=== PATIENT | female | born 1945 | race Hispanic/Latino ===

== ENCOUNTER → 2018-09-08 | Day surgery (SDC) | payer MEDICARE, OTHER ==
[2018-09-07 10:04] LABS: BASOPHILS # (AUTO) 0.1 (0.0-0.1); BASOPHILS % 0.7 % (0.0-1.0); EOSINOPHILS # (AUTO) 0.2 (0.0-0.4); EOSINOPHILS % 2.8 % (0.0-6.0); HEMATOCRIT 41.5 % (34.2-44.1); HEMOGLOBIN 14.1 g/dL (12.0-16.0); LYMPHOCYTES # (AUTO) 2.4 (1.0-3.2); MEAN CORPUSCULAR HEMOGLOBIN 30.4 pg (28-32); MEAN CORPUSCULAR VOLUME 89.4 fL (81-99); MONOCYTES # (AUTO) 0.9 (0.2-0.8); MONOCYTES % 11.9 % (4.4-11.3); NEUTROPHILS % 51.8 % (38.7-80.0); PLATELET COUNT 281 x10e3/uL (140-360); RED BLOOD COUNT 4.64 x10e6/uL (3.6-5.1); RED CELL DISTRIBUTION WIDTH 14.7 % (11.7-14.4)
[~2018-09-08] MED LIST: AMLODIPINE BESY10 MG PO; CALCIUM PO; EPHEDRINE SULFATE INJ 50 MG/10 ML SYR ONE; FENTANYL CITRATE/PF 100MCG/2 ML INJ ONE; FISH OIL 1,0001 EAC2 PO; GLUCAGON FOR INJ 1 MG VIAL ONE; HYOSCYAMINE SULFATE 0.5 MG/ML INJ IV ONE; LEVOTHYROXINE112 MCG PO; METOPROLOL SUCC50 MG PO; MIDAZOLAM HCL 2 MG/2 ML VIAL ONE; PANTOPRAZOLE SO40 MG PO; PROPOFOL IV EMULSION 10 MG/ML 50 ML VIAL ONE; SIMVASTATIN20 MG PO; VASOTEC10 MG PO
[2018-09-08 13:40] VITALS: BP 122/57
--- NOTE | 2018-09-08 15:03 | Operative Report ---
DATE OF PROCEDURE: 09/08/2018 SURGEON: Kuldeep Power MD PROCEDURE: EGD with biopsies and colonoscopy. INDICATIONS FOR EGD: History of heartburn, dysphagia. INDICATIONS FOR COLONOSCOPY: Surveillance colonoscopy, personal history of colon polyps, history of bright red blood per rectum. MEDICATIONS: The patient was done under MAC, please see anesthesiologist's note. PROCEDURE IN DETAIL: With the patient in left lateral decubitus position flexible fiberoptic Olympus gastroscope was introduced into the esophagus under direct visualization without any difficulty. A minute nodule was noted in cervical esophagus that was biopsied. Mucosa overlying the distal esophagus revealed some patchy erythema. There was some mild stricture noted at the GE junction that was dilated to size 52-[place]. The scope was then advanced with ease into her stomach and mucosa overlying the antrum revealed some diffuse erythema and moderate edema and biopsies were obtained and sent to stain for H pylori. There was some patchy atrophic changes noted in the body of the stomach and biopsies were obtained to rule out atrophic gastritis. Several minute polyps were noted in the body of the stomach and somewhat partially excised with cold biopsy forceps. An approximately 3 mm submucosal nodule was noted in the upper body, anterior wall and that was biopsied. The pylorus was of normal contour and shape, it was intubated with ease and the scope was advanced all the way to the second portion of the duodenum. The scope was then withdrawn slowly, mucosa overlying the proximal second portion and duodenal bulb appeared to be within normal limits. The scope was then withdrawn back into the stomach and retroflexed, mucosa overlying cardia and the fundus appeared to be within normal limits. The scope was then straightened out, it was subsequently withdrawn. The patient tolerated the procedure well. IMPRESSION: 1. Minute nodule in the cervical esophagus, biopsied. 2. Mild distal esophagitis. 3. Esophageal stricture at GE junction dilated to size 52-[place]. 4. Rule out atrophic gastritis. 5. Gastric polyps, hyperplastic appearing, some partially excised with the cold biopsy forceps. 6. Approximately 3 mm submucosal nodule, upper body anterior wall, biopsied. PLAN: Follow up histology. Continue Protonix 40 mg one p.o. q.a.m. a.c. Add Carafate 1 g p.o. a.c. t.i.d. and at bedtime. DESCRIPTION OF PROCEDURE: The patient was then turned around after adequate lubrication of the anal canal, a flexible fiberoptic Olympus colonoscope was inserted into the rectum with ease and advanced all the way to the cecum. The scope was then withdrawn slowly. Mucosa overlying the cecum grossly appeared to be within normal limits. Visualization of the ascending, transverse, descending and sigmoid was suboptimal as the colon was excessively irritable and spastic. Mucosa overlying the rectum grossly appeared to be within normal limits. The scope was then retroflexed into the distal rectum and small internal hemorrhoids were noted, none of which was actively bleeding. The scope was then straightened out, it was subsequently withdrawn. The patient tolerated the procedure well. IMPRESSION: 1. Colon excessively tortuous and spastic, suboptimally visualized, but no obvious obstructing or constricting lesions. 2. Internal hemorrhoids, none actively bleeding. PLAN: Initiate high-fiber, low-fat diet. Initiate high-fiber supplement. The patient will need an air-contrast barium enema later this year. Timing of followup colonoscopy in 5 years. Kuldeep Power MD [facility] [place] /[id number] cc: Hoang Power MD
== END | disposition home or self-care (01) ==
LOC: OR 08:33
PROVIDERS: ATTEND Internal Medicine Gastroenterology
DX: K29.50 Unspecified chronic gastritis without bleeding (principal); K63.5 Polyp of colon; K31.7 Polyp of stomach and duodenum; K22.2 Esophageal obstruction; K58.9 Irritable bowel syndrome, unspecified; K31.89 Other diseases of stomach and duodenum; K22.8 Other specified diseases of esophagus; K20.9 Esophagitis, unspecified; K64.8 Other hemorrhoids; I10 Essential (primary) hypertension; E03.9 Hypothyroidism, unspecified; K76.0 Fatty (change of) liver, not elsewhere classified; K21.9 Gastro-esophageal reflux disease without esophagitis; I44.0 Atrioventricular block, first degree; R00.1 Bradycardia, unspecified; E78.00 Pure hypercholesterolemia, unspecified; Z01.810 Encounter for preprocedural cardiovascular examination; Z01.812 Encounter for preprocedural laboratory examination; Z68.35 Body mass index [BMI] 35.0-35.9, adult
CPT/HCPCS: 36415; 43239; 43450; 45378; 85025; 93005 ×2; J1610; J1980; J2250; J2704; J3010

== ENCOUNTER 2020-08-09 10:00 | Outpatient (RCR) | payer MEDICARE ==
[~2020-08-09 10:00] MED LIST changes: -EPHEDRINE SULFATE INJ 50 MG/10 ML SYR ONE; -FENTANYL CITRATE/PF 100MCG/2 ML INJ ONE; -GLUCAGON FOR INJ 1 MG VIAL ONE; -HYOSCYAMINE SULFATE 0.5 MG/ML INJ IV ONE; -MIDAZOLAM HCL 2 MG/2 ML VIAL ONE; -PROPOFOL IV EMULSION 10 MG/ML 50 ML VIAL ONE
== END 2020-08-12 ==
LOC: PT 10:00
DX: M99.53 Intervertebral disc stenosis of neural canal of lumbar region (principal); M48.061 Spinal stenosis, lumbar region without neurogenic claudication; M54.5 Low back pain; M62.81 Muscle weakness (generalized)

== ENCOUNTER 2020-09-10 09:49 | Outpatient (RCR) | payer MEDICARE | END 2020-09-11 | LOC: PT 09:49 | DX: M99.53 Intervertebral disc stenosis of neural canal of lumbar region (principal) | CPT/HCPCS: 97139 ==

== ENCOUNTER 2020-10-09 11:00 | Outpatient (RCR) | payer MEDICARE | END 2020-10-12 | LOC: PT 11:00 | DX: M99.53 Intervertebral disc stenosis of neural canal of lumbar region (principal) | CPT/HCPCS: 97139 ==

== ENCOUNTER → 2021-09-04 | Outpatient (CLI) | payer MEDICARE | LOC: DX 13:13 | DX: M54.50 Low back pain, unspecified (principal) | CPT/HCPCS: 72110 ==

== ENCOUNTER → 2021-11-25 | Outpatient (CLI) | payer MEDICARE | LOC: RAD 12:05 | DX: M54.2 Cervicalgia (principal); M25.511 Pain in right shoulder | CPT/HCPCS: 72050 ==

== ENCOUNTER 2022-07-08 12:55 | Observation (INO) | payer MEDICARE ==
[~2022-07-08] VITALS: Ht 154.9 cm; Wt 87.1 kg
[2022-07-08 14:07] LABS: BASOPHILS % 0.5 % (0.0-1.0); EOSINOPHILS # (AUTO) 0.2 (0.0-0.4); EOSINOPHILS % 1.8 % (0.0-6.0); HEMATOCRIT 40.7 % (34.2-44.1); HEMOGLOBIN 14.1 g/dL (12.0-16.0); LYMPHOCYTES # (AUTO) 2.8 (1.0-3.2); LYMPHOCYTES % 33.7 % (18.0-39.1); MEAN CORPUSCULAR HEMOGLOBIN 30.9 pg (28-32); MEAN CORPUSCULAR HGB CONC 34.6 g/dL (31-35); MEAN CORPUSCULAR VOLUME 89.3 fL (81-99); MONOCYTES # (AUTO) 1.1 (0.2-0.8); MONOCYTES % 12.5 % (4.4-11.3); NEUTROPHILS # (AUTO) 4.3 (2.1-6.9); NEUTROPHILS % 51.4 % (38.7-80.0); PLATELET COUNT 276 x10e3/uL (140-360); RED BLOOD COUNT 4.56 x10e6/uL (3.6-5.1); RED CELL DISTRIBUTION WIDTH 14.2 % (11.7-14.4)
[2022-07-08 14:15] LABS: INR 0.97; PROTHROMBIN TIME 13.4 seconds (11.9-14.5)
[2022-07-08 14:24] LABS: ALBUMIN 3.5 g/dL (3.5-5.0); ALBUMIN/GLOBULIN RATIO 0.8 (0.8-2.0); CALCIUM 9.6 mg/dL (8.4-10.2); CREATININE, SERUM 0.64 mg/dL (0.57-1.11)
[2022-07-08] MEDS ORDERED: IOPAMIDOL 370 MG/ML 100 ML INFUS..BTL INJ ONE (16:09)
[2022-07-08] MEDS ORDERED: SODIUM CHLORIDE FLUSH 10 ML SYR INJ PRN (19:15)
[2022-07-08] MEDS ORDERED: ONDANSETRON HCL INJ 2MG/ML 2ML 2 MG/ML VIAL IV PRN (19:15)
[2022-07-08 19:31] LABS: CREATINE KINASE MB 1.3 ng/mL (0-5.0)
[2022-07-08 22:45] VITALS: BP 110/59
[2022-07-09] VITALS (7 sets, daily range): BP systolic 115–135; BP diastolic 57–75
[2022-07-09] MEDS ORDERED: METFORMIN HCL500 MG PO (03:55)
[2022-07-09] MEDS ORDERED: CRESTOR10 MG PO (03:59)
[2022-07-09] MEDS ORDERED: DICYCLOMINE HCL20 MG PO (03:59)
[2022-07-09] MEDS ORDERED: TIZANIDINE HCL4 M1 PO (03:59)
[2022-07-09] MEDS ORDERED: JANUVIA100 MG PO (03:59)
[2022-07-09] MEDS ORDERED: FENOFIBRATE145 M1 (03:59)
[2022-07-09 05:04] LABS: CREATINE KINASE MB 1.5 ng/mL (0-5.0)
[2022-07-09] MEDS ORDERED: ASPIRIN 325 MG TAB PO SCH (09:00)
[2022-07-09] MEDS ORDERED: DEXTROSE 50% SYRINGE 50 ML IV PRN (10:15)
[2022-07-09] MEDS: INSULIN REGULAR, HUMAN 100 UNIT/1 ML SQ SCH ×3 (11:30→21:00)
[2022-07-09 11:40] LABS: CREATINE KINASE MB 1.4 ng/mL (0-5.0)
[2022-07-09] MEDS: CLOPIDOGREL BISULFATE 75 MG TAB PO ONE ×2 (13:09→15:59)
[2022-07-09] MEDS: SODIUM CHLORIDE 0.9% 1000ML 1,000 ML IV SCH (13:09)
[2022-07-09 19:57] LABS: CLARITY,URINE CLEAR (CLEAR); COLOR,URINE YELLOW (YELLOW)
[2022-07-09 19:58] LABS: KETONES,URINE NEGATIVE (NEGATIVE); LEUKOCYTE ESTERASE ,URINE SMALL (NEGATIVE); NITRITE,URINE NEGATIVE (NEGATIVE); PROTEIN,URINE DIPSTICK NEGATIVE (NEGATIVE); URINE UROBILINOGEN 0.2 mg/dL (0.2 - 1)
[2022-07-09 20:08] LABS: BACTERIA,URINE MODERATE /HPF; EPITHELIAL CELLS,URINE FEW /LPF; RBC,URINE 0-5 /HPF (0-5)
[2022-07-09] MEDS: TIZANIDINE HCL 4 MG TAB PO SCH ×2 (20:59→22:11)
[2022-07-09] MEDS ORDERED: SIMVASTATIN 20 MG TAB PO SCH (21:00)
[2022-07-10 05:39] LABS: BASOPHILS # (AUTO) 0.1 (0.0-0.1); BASOPHILS % 1.2 % (0.0-1.0); EOSINOPHILS # (AUTO) 0.2 (0.0-0.4); EOSINOPHILS % 2.9 % (0.0-6.0); HEMATOCRIT 40.5 % (34.2-44.1); HEMOGLOBIN 13.8 g/dL (12.0-16.0); LYMPHOCYTES # (AUTO) 2.5 (1.0-3.2); LYMPHOCYTES % 36.6 % (18.0-39.1); MEAN CORPUSCULAR HEMOGLOBIN 30.7 pg (28-32); MEAN CORPUSCULAR HGB CONC 34.1 g/dL (31-35); MONOCYTES # (AUTO) 0.8 (0.2-0.8); MONOCYTES % 11.5 % (4.4-11.3); NEUTROPHILS # (AUTO) 3.3 (2.1-6.9); NEUTROPHILS % 47.7 % (38.7-80.0); PLATELET COUNT 280 x10e3/uL (140-360); RED CELL DISTRIBUTION WIDTH 14.2 % (11.7-14.4)
[2022-07-10] MEDS ORDERED: LEVOTHYROXINE SODIUM 125 MCG TAB PO SCH (06:00)
[2022-07-10 06:23] LABS: ALBUMIN/GLOBULIN RATIO 0.8 (0.8-2.0); ANION GAP 12.1 mmol/L (8-16); CHOL/HDL RATIO 5.4 (3.0-3.6); CREATININE, SERUM 0.66 mg/dL (0.57-1.11); POTASSIUM 4.1 mmol/L (3.5-5.1)
[2022-07-10 06:33] VITALS: BP 114/62
[2022-07-10 06:46] LABS: THYROID STIMULATING HORMONE 1.12 uIU/mL (0.350-4.940)
[2022-07-10] MEDS: SODIUM CHLORIDE 0.9% 1000ML 1,000 ML IV SCH (07:30)
[2022-07-10] MEDS: INSULIN REGULAR, HUMAN 100 UNIT/1 ML SQ SCH ×2 (07:30→11:30)
[2022-07-10 08:02] VITALS: BP 109/58
[2022-07-10 08:43] VITALS: BP 109/58
[2022-07-10] MEDS: TIZANIDINE HCL 4 MG TAB PO SCH (08:57)
[2022-07-10] MEDS ORDERED: ASPIRIN 81 MG ENTERIC COATED PO SCH (09:00)
[2022-07-10] MEDS ORDERED: METOPROLOL SUCCINATE 25 MG TAB XL PO SCH (09:00)
[2022-07-10] MEDS ORDERED: ENALAPRIL MALEATE 10 MG TAB PO SCH (09:00)
[2022-07-10] MEDS ORDERED: AMLODIPINE BESYLATE 10 MG TAB PO SCH (09:00)
[2022-07-10 11:38] VITALS: BP 113/55
[2022-07-10] MEDS ORDERED: ONDANSETRON HCL 4 MG ORAL DISINTEGRATING TAB PO PRN (12:45)
== END 2022-07-10 16:36 | disposition home or self-care (01) ==
LOC: ER 12:59 → ERHOLD 19:04 → MED/SURG 22:04
PROVIDERS: ADMIT Family Medicine Adult Medicine; ATTEND Family Medicine Adult Medicine
DX: R07.89 Other chest pain (principal); E03.9 Hypothyroidism, unspecified; E78.5 Hyperlipidemia, unspecified; I73.9 Peripheral vascular disease, unspecified; K21.9 Gastro-esophageal reflux disease without esophagitis; E66.01 Morbid (severe) obesity due to excess calories; Z68.35 Body mass index [BMI] 35.0-35.9, adult; F41.9 Anxiety disorder, unspecified; Z20.822 Contact with and (suspected) exposure to COVID-19
CPT/HCPCS: 0223U; 36415; 71045; 71260; 72125; 80053; 80061; 81001; 82550; 82553; 82948; 83036; 84443; 84484; 85025; 85379; 85610; 93005; 93306; 93925; 93971; 99284; G0378; J7030; Q9967

== ENCOUNTER → 2023-07-07 | Outpatient (REF) | payer MEDICARE ==
[~2023-07-07] MED LIST changes: +CRESTOR10 MG PO; +DICYCLOMINE HCL20 MG PO; +FENOFIBRATE145 M1; +JANUVIA100 MG PO; +METFORMIN HCL500 MG PO; +TIZANIDINE HCL4 M1 PO
== END ==
LOC: MAMMO 08:18
PROVIDERS: ATTEND Family Medicine Adult Medicine
DX: Z12.31 Encounter for screening mammogram for malignant neoplasm of breast (principal)
CPT/HCPCS: 77067

== ENCOUNTER → 2024-08-17 | Day surgery (SDC) | payer MEDICARE ==
[2024-08-10 10:43] LABS: BASOPHILS # (AUTO) 0.1 (0.0-0.1); BASOPHILS % 1.2 % (0.0-1.0); EOSINOPHILS # (AUTO) 0.2 (0.0-0.4); EOSINOPHILS % 2.3 % (0.0-6.0); HEMOGLOBIN 14.1 g/dL (12.0-16.0); LYMPHOCYTES # (AUTO) 2.4 (1.0-3.2); LYMPHOCYTES % 34.8 % (18.0-39.1); MEAN CORPUSCULAR HEMOGLOBIN 30.7 pg (28-32); MEAN CORPUSCULAR HGB CONC 34.4 g/dL (31-35); MEAN CORPUSCULAR VOLUME 89.3 fL (81-99); MONOCYTES # (AUTO) 0.7 (0.2-0.8); MONOCYTES % 10.7 % (4.4-11.3); NEUTROPHILS # (AUTO) 3.5 (2.1-6.9); NEUTROPHILS % 50.7 % (38.7-80.0); PLATELET COUNT 306 x10e3/uL (140-360); RED BLOOD COUNT 4.59 x10e6/uL (3.6-5.1); WHITE BLOOD COUNT 6.83 x10e3/uL (4.8-10.8)
[~2024-08-17] MED LIST changes: +CALCIUM ACETAT667 MG PO; +FAMOTIDINE20 MG PO; +FENTANYL CITRATE/PF 100MCG/2 ML INJ ONE; +GLUCAGON FOR INJ 1 MG VIAL ONE; +HYOSCYAMINE SULFATE 0.5 MG/ML INJ ONE; +LIDOCAINE HCL 2% LOCAL INJ 5 ML SDV VIAL INJ ONE; +METOCLOPRAMIDE HCL 10 MG/2ML VIAL ONE; +PROPOFOL IV EMULSION 50 ML IV ONE; +VITAMIN D3 COM1 EACH PO
[2024-08-17 08:42] VITALS: TEMP 97
[2024-08-17] MEDS: LACTATED RINGER'S 1,000 ML ONE (09:11)
[2024-08-17 09:25] VITALS: BP 107/63; PULSE 58; RESP 16; O2SAT 98
== END | disposition home or self-care (01) ==
LOC: OR 05:55
PROVIDERS: ATTEND Internal Medicine Gastroenterology
DX: K92.1 Melena (principal); K59.00 Constipation, unspecified; K29.50 Unspecified chronic gastritis without bleeding; K31.7 Polyp of stomach and duodenum; K52.9 Noninfective gastroenteritis and colitis, unspecified; R13.10 Dysphagia, unspecified; K21.9 Gastro-esophageal reflux disease without esophagitis; R14.2 Eructation; K64.8 Other hemorrhoids; K22.2 Esophageal obstruction; K20.90 Esophagitis, unspecified without bleeding; Z86.0100 Personal history of colon polyps, unspecified; R12 Heartburn
CPT/HCPCS: 43239; 43450; G0121; 36415; 45378; 45380; 85025; 93005; J1610; J1980; J2003; J2470; J2765